=== PATIENT | female | born 1980 | race African-American/Black ===

== ENCOUNTER 2021-09-11 16:33 | Emergency (ER) | payer BC, MEDICAID ==
[~2021-09-11] VITALS: Ht 162.6 cm; Wt 77.0 kg
[2021-09-11] MEDS ORDERED: IBUPROFEN 600MG TABLET PO ONE (19:00)
[2021-09-11] MEDS ORDERED: HYDROCODONE/ACETAMINOPHEN 5/325MG TABLET PO ONE (19:45)
[2021-09-11 19:54] VITALS: BP 147/82
[2021-09-11] MEDS ORDERED: GABA-532 MT (21:19)
[2021-09-11] MEDS ORDERED: IBUP-2030 MT (21:19)
== END 2021-09-11 21:28 | disposition home or self-care (01) ==
LOC: ER 16:33
DX: S70.01XA Contusion of right hip, initial encounter (principal); S39.012A Strain of muscle, fascia and tendon of lower back, initial encounter; M19.90 Unspecified osteoarthritis, unspecified site; W01.0XXA Fall on same level from slipping, tripping and stumbling without subsequent striking against object, initial encounter; Y93.89 Activity, other specified; Y92.018 Other place in single-family (private) house as the place of occurrence of the external cause
CPT/HCPCS: 72110; 73502; 81025; 99284

== ENCOUNTER 2021-10-29 06:15 | Emergency (ER) | payer MEDICAID, OTHER ==
[~2021-10-29] VITALS: Ht 172.7 cm; Wt 68.0 kg
[~2021-10-29 06:15] MED LIST: GABA-532 MT; IBUP-2030 MT
[2021-10-29] MEDS ORDERED: KETOROLAC 60MG/2ML VIAL IM ONE (06:30)
[2021-10-29 06:34] VITALS: BP 110/78
[2021-10-29] MEDS ORDERED: IBUP-2028 PO (08:18)
[2021-10-29] MEDS ORDERED: T3 PO (08:18)
== END 2021-10-29 08:47 | disposition home or self-care (01) ==
LOC: ER 06:15
DX: M25.562 Pain in left knee (principal); M25.561 Pain in right knee
CPT/HCPCS: 73560; 81025; 96372; 99283; J1885

== ENCOUNTER 2022-07-02 15:09 | Emergency (ER) | payer OTHER ==
[~2022-07-02] VITALS: Ht 162.6 cm; Wt 68.0 kg
[~2022-07-02 15:09] MED LIST changes: +IBUP-2028 PO; +T3 PO
[2022-07-02 16:28] LABS: BASOPHILS % 0.4 % (0.0-2.0); HEMATOCRIT. 36.5 % (36.0-48.0); HEMOGLOBIN. 12.5 g/dL (12.0-16.0); LYMPHOCYTES % 26.7 % (20.0-50.0); MEAN CORPUSCULAR HEMOGLOBIN 32.8 pg (28.0-32.0); MEAN CORPUSCULAR VOLUME 95.5 fL (81.0-99.0); MEAN PLATELET VOLUME 6.9 fl (7.4-10.4); MONOCYTES % 8.8 % (2.0-8.0); NEUTROPHILS % 64.1 % (40.0-76.0); PLATELET 370 x1000/uL (130-400); RED BLOOD CELL COUNT 3.83 mill/uL (4.2-5.4); RED CELL DISTRIBUTION WIDTH 12.9 % (11.6-14.6)
[2022-07-02 16:38] LABS: CHLORIDE 108 mEq/L (98-107)
[2022-07-02 16:44] LABS: HCG SCREEN NEGATIVE
[2022-07-02 16:46] LABS: ETHANOL BLOOD < 10 mg/dL
[2022-07-02] MEDS ORDERED: LORAZEPAM 1MG TABLET PO ONE (19:15)
[2022-07-02 19:30] LABS: *AMPHETAMINES SCREEN URINE NEGATIVE (NEGATIVE); *BARBITURATES SCREEN URINE NEGATIVE (NEGATIVE); *BENZODIAZEPINES SCREEN URINE NEGATIVE (NEGATIVE); *COCAINE SCREEN URINE NEGATIVE (NEGATIVE); CANNABINOID URINE SCREEN NEGATIVE (NEGATIVE); METHADONE URINE SCREEN NEGATIVE (NEGATIVE); OPIATES URINE SCREEN NEGATIVE (NEGATIVE); PHENCYCLIDINE URINE SCREEN NEGATIVE (NEGATIVE)
[2022-07-02] MEDS ORDERED: TRAZODONE HCL 50MG TABLET PO SCH (21:00)
[2022-07-03] MEDS ORDERED: TRAZODONE HCL 50MG TABLET PO NR (02:00)
[2022-07-03] MEDS ORDERED: LORAZEPAM 1MG TABLET PO ONE (07:45)
[2022-07-03 18:40] VITALS: BP 132/72
== END 2022-07-03 18:40 | disposition home or self-care (01) ==
LOC: ER 15:26
DX: R45.851 Suicidal ideations (principal); I10 Essential (primary) hypertension; Z20.822 Contact with and (suspected) exposure to COVID-19
CPT/HCPCS: 36415; 80048; 80305; 80307; 80320; 80329; 84703; 85025; 87426; 99285; C9803; G0480

== ENCOUNTER 2023-11-17 01:42 | Emergency (ER) | payer MEDICAID, OTHER ==
[~2023-11-17] VITALS: Ht 165.1 cm; Wt 68.7 kg
[2023-11-17 01:49] VITALS: O2SAT 100
[2023-11-17 03:06] VITALS: BP 123/79; PULSE 69; RESP 18; TEMP 98.5; O2SAT 100
== END 2023-11-17 02:53 | disposition left against medical advice (07) ==
LOC: ER 01:42
DX: M25.512 Pain in left shoulder (principal); M25.511 Pain in right shoulder; Z53.21 Procedure and treatment not carried out due to patient leaving prior to being seen by health care provider

== ENCOUNTER 2023-11-17 02:59 | Emergency (ER) | payer MEDICAID | END 2023-11-17 03:34 | disposition left against medical advice (07) | LOC: ER 02:59 | DX: Z76.0 Encounter for issue of repeat prescription (principal); Z53.21 Procedure and treatment not carried out due to patient leaving prior to being seen by health care provider ==

== ENCOUNTER 2024-02-01 13:56 | Emergency (ER) | payer MEDICAID ==
[~2024-02-01] VITALS: Ht 170.2 cm; Wt 80.0 kg
[~2024-02-01 13:56] MED LIST changes: +GABA-1180 MT; -GABA-532 MT
[2024-02-01 14:06] VITALS: BP 109/64; PULSE 92; RESP 18; TEMP 98.4; O2SAT 100
[2024-02-01] MEDS ORDERED: MORPHINE SULFATE 4 MG/ML INJ (FOR IV/IM USE) IM ONE (14:30)
[2024-02-01] MEDS ORDERED: KETOROLAC 15MG/ML VIAL IM ONE (14:30)
== END 2024-02-01 14:55 | disposition left against medical advice (07) ==
LOC: ER 13:56
DX: G89.29 Other chronic pain (principal); M54.9 Dorsalgia, unspecified; M54.2 Cervicalgia; I10 Essential (primary) hypertension; Z98.890 Other specified postprocedural states
CPT/HCPCS: 99281

== ENCOUNTER 2024-02-21 19:26 | Emergency (ER) | payer OTHER ==
[~2024-02-21] VITALS: Ht 162.6 cm; Wt 60.0 kg
[2024-02-21 20:01] VITALS: BP 136/80; PULSE 90; RESP 18; TEMP 98.5; O2SAT 100
== END 2024-02-21 20:03 | disposition left against medical advice (07) ==
LOC: ER 19:26
DX: Z00.00 Encounter for general adult medical examination without abnormal findings (principal); Z53.21 Procedure and treatment not carried out due to patient leaving prior to being seen by health care provider